=== PATIENT | female | born 1945 | race Caucasian/White ===

== ENCOUNTER 2017-08-04 11:13 | Observation (INO) ==
[2017-08-04 12:02] LABS: Basophils % 0.4 %; Eosinophils # 0.1 K/mcL (0.0-0.6); Eosinophils % 0.9 %; Hematocrit 35.5 % (35.3-44.9); Hemoglobin 11.8 g/dL (11.5-15.4); Immature Granulocytes % 0.4 % (0-4); Lymphocytes # 0.7 K/mcL (0.6-4.6); Lymphocytes % 7.4 %; Mean Corpuscular HGB Conc 33.2 g/dL (31.6-35.5); Mean Corpuscular Hemoglobin 29.7 pg (28.0-33.3); Mean Corpuscular Volume 89.4 fL (83.0-100.0); Mean Platelet Volume 8.8 fL (9.4-12.4); Monocytes # 0.8 K/mcL (0.0-1.3); Monocytes % 8.6 %; Neutrophils # 7.6 K/mcL (1.6-8.9); Platelet Count 250 K/mcL (140-400); Red Blood Count 3.97 M/mcL (3.82-4.97); Red Cell Distribution Width 13.3 % (11.5-14.5); Segmented Neutrophils % 82.3 %
[2017-08-04 12:18] LABS: Prothrombin Time 10.2 Seconds (9.4-12.1)
[2017-08-04 12:29] LABS: Troponin I < 0.03 ng/mL (< 0.04)
[2017-08-04 12:50] LABS: Alanine Aminotransferase 10 Units/L (7-52); Albumin 3.7 g/dL (3.5-5.7); Albumin/Globulin Ratio 1.5 (1.1-2.2); Alkaline Phosphatase 80 Units/L (34-104); Aspartate Amino Transferase 11 Units/L (13-39); BUN/Creatinine Ratio 10 (6-26); Bilirubin,Total 0.5 mg/dL (0.3-1.0); Blood Urea Nitrogen 12 mg/dL (8-23); Calcium 9.2 mg/dL (8.6-10.3); Carbon Dioxide 23 mEq/L (23-29); Chloride 105 mEq/L (98-107); Globulin 2.5 g/dL (2.4-3.5); Glucose 175 mg/dL (70-105); Osmolality,Calculated 290 (280-300); Potassium 4.1 mEq/L (3.5-5.1); Sodium 138 mEq/L (136-145); Total Protein 6.2 g/dL (6.4-8.9); eGFR For African Americans 56 (> 60); eGFR For Non-African Americans 46 (> 60)
[2017-08-04] MEDS ORDERED: Ondansetron 4 MG/2 ML VIAL IVP ONE (13:23)
[2017-08-04 14:01] LABS: Bilirubin,Urine Negative (Negative); Blood,Urine Negative (Negative); Clarity,Urine Clear (Clear); Color,Urine Yellow (Yellow); Glucose,Urine (UA) Normal (Normal); Ketones,Urine Negative (Negative); Leukocyte Esterase,Urine Small (Negative); Nitrite,Urine Negative (Negative); PH,Urine 7.5 pH Units (5.0-8.0); Protein,Urine 30 mg/dL (Neg-Trace); Specific Gravity,Urine 1.017 (1.010-1.025); Urobilinogen,Urine Normal (Normal)
[2017-08-04 14:03] LABS: Bacteria,Urine None Seen per hpf (None-Few); Hyaline Casts,Urine None Seen per lpf (None-Few); RBC,Urine 0-3 per hpf (0-3); Squamous Epithelial Cell,Urine Many per lpf (None-Few); WBC,Urine 0-3 per hpf (0-3)
[2017-08-04] MEDS ORDERED: Metoclopramide 10 MG/2 ML VIAL IVP ONE (15:10)
--- NOTE | 2017-08-04 15:14 | Emergency Department Note ---
Disposition Clinical Impression: Syncope Qualifiers: Qualified Code(s): R55 - Disposition: Admitted As Inpatient Condition: Good General Adult HPI - General Chief complaint: ED Syncope Stated complaint: passing out Time Seen by Provider: 08/04/17 11:22 Source: patient, family Limitations: no limitations Nursing Notes Reviewed: Yes Vital Signs Reviewed: Yes - History of Present Illness HPI Narrative: 72-year-old female presents emergency Department with concerns of headache, neck pain, fever, chills, syncopal event. Patient states she syncopized after getting out of bed, she fell back in the bed and was unconscious for an unknown period of time. Patient denies recent medication changes. No other sick contacts. This never happened to her in the past. Patient denies recent trauma. There is no chest pain, palpitations. Patient does feel lightheaded with movement of her head. Pain Scale: 10 - Related Data Home Medications Medication Instructions Recorded Confirmed Albuterol Sulfate [Albuterol 2 puff IH Q4H PRN 08/04/17 08/04/17 Inhaler] Carvedilol [Coreg] 6.25 mg PO BID 08/04/17 08/04/17 Clopidogrel [Plavix] 75 mg PO DAILY 08/04/17 08/04/17 FLUoxetine HCl [PROzac] 20 mg PO DAILY 08/04/17 08/04/17 Furosemide [Lasix] 40 mg PO DAILY 08/04/17 08/04/17 Insulin Glargine,Hum.rec.anlog 26 unit SQ HS 08/04/17 08/04/17 [Basaglar Kwikpen U-100] Levothyroxine Sodium [Levo-T] [place] [address]/04/17 08/04/17 Lisinopril [Zestril] 20 mg PO DAILY 08/04/17 08/04/17 Meclizine HCl [Verticalm] 25 mg PO DAILY PRN 08/04/17 08/04/17 Ranitidine HCl [Zantac] 300 mg PO BID 08/04/17 08/04/17 Saxagliptin HCl [Onglyza] 5 mg PO DAILY 08/04/17 08/04/17 Simvastatin [Zocor] 40 mg PO HS 08/04/17 08/04/17 Allergies Allergy/AdvReac Type Severity Reaction Status Date / Time azithromycin [From Zithromax] Allergy See Verified 08/04/17 17:01 Comments codeine Allergy See Verified 08/04/17 17:01 Comments Erythromycin Base Allergy See Verified 08/04/17 17:01 Comments iodine Allergy See Verified 08/04/17 17:01 Comments meperidine [From Demerol] Allergy See Verified 08/04/17 17:01 Comments adhesive tape AdvReac See Verified 08/04/17 17:01 Comments All systems ED: reviewed and negative except as stated. Review of Systems: As Per HPI Past Medical History - Past Medical History Attestation: Yes The following information was validated with the patient. 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 Bowel sounds present Neuro: A&O to person, place, time and situation. No focal deficits noted on exam. No nystagmus noted on exam. Psychiatric: cooperative and appropriate mood and affect. - General Limitations: no limitations General appearance: alert, in no apparent distress Course Vital Signs Temperature 100.0 F H 08/04/17 11:15 Pulse Rate 72 08/04/17 11:15 Respiratory Rate 18 08/04/17 11:15 Blood Pressure 139/87 08/04/17 11:15 O2 Sat by Pulse Oximetry 96 08/04/17 11:15 Temperature 97.9 F 08/04/17 19:09 Pulse Rate 70 08/04/17 19:09 Respiratory Rate 17 08/04/17 19:09 Blood Pressure 101/46 08/04/17 19:09 O2 Sat by Pulse Oximetry 95 08/04/17 19:09 Oxygen Delivery Oxygen Delivery Room Air Medical Decision Making - Medical Records Medical records reviewed: Yes I reviewed the patient's medical records. - Lab Data Lab results reviewed: Yes I reviewed the patient's lab results. Result diagrams: 08/04/17 11:51 08/04/17 11:51 Lab Results 08/04/17 08/04/17 08/04/17 Range/Units 11:51 11:51 11:51 WBC 9.2 (4.3-11.1) K/mcL RBC 3.97 (3.82-4.97) M/mcL Hgb 11.8 (11.5-15.4) g/dL Hct 35.5 (35.3-44.9) % MCV 89.4 (83.0-100.0) fL MCH 29.7 (28.0-33.3) pg MCHC 33.2 (31.6-35.5) g/dL RDW 13.3 (11.5-14.5) % Plt Count 250 (140-400) K/mcL MPV 8.8 L (9.4-12.4) fL Immature Gran % 0.4 (0-4) % Seg Neutrophils % 82.3 % Lymphocytes % 7.4 % Monocytes % 8.6 % Eosinophils % 0.9 % Basophils % 0.4 % Neutrophils # 7.6 (1.6-8.9) K/mcL Lymphocytes # 0.7 (0.6-4.6) K/mcL Monocytes # 0.8 (0.0-1.3) K/mcL Eosinophils # 0.1 (0.0-0.6) K/mcL Basophils # 0.0 (0.0-0.2) K/mcL PT 10.2 (9.4-12.1) Seconds INR 1.0 APTT 30.0 (26.0-36.0) Seconds Sodium 138 (136-145) mEq/L Potassium 4.1 (3.5-5.1) mEq/L Chloride 105 (98-107) mEq/L Carbon Dioxide 23 (23-29) mEq/L BUN 12 (8-23) mg/dL Creatinine 1.15 (0.60-1.20) mg/dL Est GFR ( Amer) 56 L (> 60) Est GFR (Non-Af Amer) 46 L (> 60) BUN/Creatinine Ratio 10 (6-26) Glucose 175 H (70-105) mg/dL Calculated Osmolality 290 (280-300) Calcium 9.2 (8.6-10.3) mg/dL Total Bilirubin 0.5 (0.3-1.0) mg/dL AST 11 L (13-39) Units/L ALT 10 (7-52) Units/L Alkaline Phosphatase 80 (34-104) Units/L Troponin I < 0.03 (< 0.04) ng/mL Serum Total Protein 6.2 L (6.4-8.9) g/dL Albumin 3.7 (3.5-5.7) g/dL Globulin 2.5 (2.4-3.5) g/dL Albumin/Globulin Ratio 1.5 (1.1-2.2) Urine Color (Yellow) Urine Clarity (Clear) Urine pH (5.0-8.0) pH Units Ur Specific [place] (1.010-1.025) Urine Protein (Neg-Trace) mg/dL Urine Glucose (UA) (Normal) mg/dL Urine Ketones (Negative) mg/dL Urine Blood (Negative) Urine Nitrite (Negative) Urine Bilirubin (Negative) Urine Urobilinogen (Normal) mg/dL Ur Leukocyte Esterase (Negative) Urine Microscopic RBC (0-3) per hpf Urine Microscopic WBC (0-3) per hpf Ur Squamous Epith Cells (None-Few) per lpf Urine Bacteria (None-Few) per hpf Hyaline Casts (None-Few) per lpf CSF Volume mL CSF Appearance (Clear) CSF Color (Colorless) CSF RBC (0.000 - 0.002) M/mcL CSF Tot Nucleated Cells (0-5) TNC/mcL CSF Glucose (40-70) mg/dL CSF Xanth Comm (Not Observe) CSF Total Protein (15-45) mg/dL 18 08/04/17 Range/Units 13:30 15:50 WBC (4.3-11.1) K/mcL RBC (3.82-4.97) M/mcL Hgb (11.5-15.4) g/dL Hct (35.3-44.9) % MCV (83.0-100.0) fL MCH (28.0-33.3) pg MCHC (31.6-35.5) g/dL RDW (11.5-14.5) % Plt Count (140-400) K/mcL MPV (9.4-12.4) fL Immature Gran % (0-4) % Seg Neutrophils % % Lymphocytes % % Monocytes % % Eosinophils % % Basophils % % Neutrophils # (1.6-8.9) K/mcL Lymphocytes # (0.6-4.6) K/mcL Monocytes # (0.0-1.3) K/mcL Eosinophils # (0.0-0.6) K/mcL Basophils # (0.0-0.2) K/mcL PT (9.4-12.1) Seconds INR APTT (26.0-36.0) Seconds Sodium (136-145) mEq/L Potassium (3.5-5.1) mEq/L Chloride (98-107) mEq/L Carbon Dioxide (23-29) mEq/L BUN (8-23) mg/dL Creatinine (0.60-1.20) mg/dL Est GFR ( Amer) (> 60) Est GFR (Non-Af Amer) (> 60) BUN/Creatinine Ratio (6-26) Glucose (70-105) mg/dL Calculated Osmolality (280-300) Calcium (8.6-10.3) mg/dL Total Bilirubin (0.3-1.0) mg/dL AST (13-39) Units/L ALT (7-52) Units/L Alkaline Phosphatase (34-104) Units/L Troponin I (< 0.04) ng/mL Serum Total Protein (6.4-8.9) g/dL Albumin (3.5-5.7) g/dL Globulin (2.4-3.5) g/dL Albumin/Globulin Ratio (1.1-2.2) Urine Color Yellow (Yellow) Urine Clarity Clear (Clear) Urine pH 7.5 (5.0-8.0) pH Units Ur Specific [place] 1.017 (1.010-1.025) Urine Protein 30 H (Neg-Trace) mg/dL Urine Glucose (UA) Normal (Normal) mg/dL Urine Ketones Negative (Negative) mg/dL Urine Blood Negative (Negative) Urine Nitrite Negative (Negative) Urine Bilirubin Negative (Negative) Urine Urobilinogen Normal (Normal) mg/dL Ur Leukocyte Esterase Small H (Negative) Urine Microscopic RBC 0-3 (0-3) per hpf Urine Microscopic WBC 0-3 (0-3) per hpf Ur Squamous Epith Cells Many H (None-Few) per lpf Urine Bacteria None Seen (None-Few) per hpf Hyaline Casts None Seen (None-Few) per lpf CSF Volume 4.0 mL CSF Appearance Clear (Clear) CSF Color Colorless (Colorless) CSF RBC < 0.002 (0.000 - 0.002) M/mcL CSF Tot Nucleated Cells < 3 (0-5) TNC/mcL CSF Glucose 95 H (40-70) mg/dL CSF Xanth Comm Not Observed (Not Observe) CSF Total Protein 40 (15-45) mg/dL - Radiology Data Radiology results reviewed: Yes I reviewed the patient's radiology results. - EKG Data EKG #1 EKG attestation: Yes I reviewed and interpreted this EKG. EKG results narrative: ECG - interpreted by ED physician. Rate 73, normal sinus rhythm, no STEMI, ID, QT intervals, and QRS within normal limits
[2017-08-04 16:07] LABS: Red Blood Cell,CSF < 0.002 M/mcL
[2017-08-04 16:08] LABS: Appearance,CSF Clear (Clear)
[2017-08-04 16:44] LABS: Glucose,CSF 95 mg/dL (40-70); Total Protein,CSF 40 mg/dL (15-45)
[2017-08-04] MEDS ORDERED: Naloxone 0.4 MG/ML INJ IVP PRN (17:13)
[2017-08-04] MEDS ORDERED: 0.9 % Sodium Chloride 1,000 ML IVC SCH (17:15)
--- NOTE | 2017-08-04 17:23 | Internal Med History&Physical ---
Date of Encounter: 08/04/17 Time of Encounter: 17:25 Internal Medicine - H&P: HPI Chief complaint: Syncope Admitted From: Home Plans for Post Hospital Care: Home History of present illness: Ms. Porter is a 72 year old female who presented to the emergency department with couple episodes of syncope. Patient stated she felt dizzy this morning and then she lost consciousness for a short period of time when she was in bed. Happened again later in the day. Patient denied any shortness of breath denied any chest pain associated with the episode. It never happened in the past. She denied any palpitation. Patient stated that her bed with her taking her from her neck to her tailbone. Patient had low-grade temperature 100. LP was done by the emergency department physician performed negative. On my interviewing the patient she was feeling better. Meningeal signs were negative. She felt lightheaded and some headache earlier today but she is doing better. Patient stated that she did not take any of her medications today. Past Med Surg Social Fam HX - Past Medical History Medical history: coronary artery disease, diabetes, GERD, hypertension, myocardial infarction, other Additional medical history: vertigo Psychiatric history: anxiety, depression - Social History Smoking Status: Never smoker Smokeless Tobacco Status: No Alcohol use: none Drug use: none - Additional Family History Additional family history: Family history positive for coronary artery disease and diabetes Internal Medicine - H&P: Meds Albuterol Sulfate [Albuterol Inhaler] 2 puff IH Q4H PRN 08/04/17 [History] Carvedilol [Coreg] 6.25 mg PO BID 08/04/17 [History] Clopidogrel [Plavix] 75 mg PO DAILY 08/04/17 [History] FLUoxetine HCl [PROzac] 20 mg PO DAILY 08/04/17 [History] Furosemide [Lasix] 40 mg PO DAILY 08/04/17 [History] Insulin Glargine,Hum.rec.anlog [Basaglar Ifeomapen U-100] 26 unit SQ HS 08/04/17 [ History] Levothyroxine Sodium [Levo-T] 112 mcg PO 0630 08/04/17 [History] Lisinopril [Zestril] 20 mg PO DAILY 08/04/17 [History] Meclizine HCl [Verticalm] 25 mg PO DAILY PRN 08/04/17 [History] Ranitidine HCl [Zantac] 300 mg PO BID 08/04/17 [History] Saxagliptin HCl [Onglyza] 5 mg PO DAILY 08/04/17 [History] Simvastatin [Zocor] 40 mg PO HS 08/04/17 [History] 3 Allergy/AdvReac Type Severity Reaction Status Date / Time azithromycin [From Zithromax] Allergy See Verified 08/04/17 17:01 Comments codeine Allergy See Verified 08/04/17 17:01 Comments Erythromycin Base Allergy See Verified 08/04/17 17:01 Comments iodine Allergy See Verified 08/04/17 17:01 Comments meperidine [From Demerol] Allergy See Verified 08/04/17 17:01 Comments adhesive tape AdvReac See Verified 08/04/17 17:01 Comments All Systems PM: A 10-system review of systems was performed and is negative for pertinent findings except as documented above in the HPI. Review of systems: Comprehensive 10 point review of system was done and it was negative other than what was mentioned above - Constitutional Vitals: Temp Pulse Resp BP Pulse Ox 98.0 F 64 16 107/62 94 08/04/17 17:18 08/04/17 17:18 08/04/17 17:18 08/04/17 17:18 08/04/17 17:18 General appearance: Present: A&O X 3 - Head Head exam: Present: atraumatic, normocephalic - Eye Eye exam: Present: PERRL, conjuntiva pink, sclera anicteric Pupils: Present: PERRL - Neck Neck exam general surgery: Present: supple, trachea midline. Absent: lymphadenopathy Additional comments: Brudzinski and Kernig signs are both negative - Respiratory Respiratory exam: Present: CTAB. Absent: accessory muscle use, rales, rhonchi, wheezes - Cardiovascular Cardiovascular exam: Present: RRR, +S1, +S2. Absent: diastolic murmur, gallop, rubs, systolic murmur - GI/Abdominal GI/Abdominal exam: Present: normal bowel sounds, soft, no peritoneal signs. Absent: distended, tenderness - Neurological Exam Neurological exam: Present: CN II-XII intact, oriented X3, no focal deficits. Absent: pronater drift, facial droop, speech deficit - Skin Skin exam: Present: dry, intact Internal Med - H&P Results - Labs CBC & Chem 7: 08/04/17 11:51 08/04/17 11:51 - Assessment and plan (1) Syncope Current Visit: Yes Status: Acute Assessment and plan: Gentle IV hydration with normal saline We will check an echocardiogram for further evaluation of the heart structure and function Check carotid duplex Telemetry monitoring to rule out any arrhythmias Patient may need event monitor as an outpatient after discharge. She has a history of coronary artery disease and had 8 stents placed Check orthostatic vital signs Check serial troponin Physical therapy and occupational therapy Qualifiers: Qualified Code(s): R55 - Syncope and collapse (2) Temperature elevated Current Visit: Yes Status: Acute Assessment and plan: Low-grade fever was temperature of 100 No clear signs of infection Lumbar puncture done by the emergency room and results were negative. Patient does not have any signs of meningeal irritation Will get blood cultures Follow clinically (3) Coronary artery disease Current Visit: Yes Status: Acute Assessment and plan: Patient has a history of coronary artery disease with 8 stents placed Continue current cardiac medications as ordered Serial troponin ordered Qualifiers: Qualified Code(s): I25.10 - Atherosclerotic heart disease of [place] coronary artery without angina pectoris (4) Type 2 diabetes mellitus Current Visit: Yes Status: Acute Assessment and plan: Continue antidiabetic medications as ordered Add insulin sliding scale. Monitor Accu-Checks Qualifiers: Qualified Code(s): E11.9 - Type 2 diabetes mellitus without complications (5) History of gastroesophageal reflux (GERD) Current Visit: Yes Status: Acute Assessment and plan: Patient is taking ranitidine at home with no improvement Was switched to PPI (6) DVT prophylaxis Current Visit: Yes Status: Acute Assessment and plan: With Lovenox as per protocol - Time Spent With Patient Total time spent is greater than 50% in coordination of care (as documented) at patient's floor/unit and/or counseling patient:
[2017-08-04] MEDS: (Saxagliptin Hcl [Onglyza] 5 MG) PO SCH (17:52)
[2017-08-04] MEDS: Lisinopril 20 MG TABLET PO SCH (17:53)
[2017-08-04] MEDS: FLUoxetine 20 MG CAPSULE PO SCH (18:22)
[2017-08-04] MEDS: Furosemide 40 MG TABLET PO SCH (18:22)
[2017-08-04] MEDS: 0.9 % Sodium Chloride 1,000 ML IVC SCH (18:26)
[2017-08-04] MEDS: Acetaminophen 325 MG TABLET PO PRN (20:13)
[2017-08-04] MEDS ORDERED: Insulin DETEMIR 100 UNIT/ML X5UNITS SQ SCH (21:00)
[2017-08-05 03:18] LABS: Basophils % 0.3 %; Eosinophils # 0.1 K/mcL (0.0-0.6); Eosinophils % 1.4 %; Hematocrit 32.8 % (35.3-44.9); Hemoglobin 10.4 g/dL (11.5-15.4); Immature Granulocytes % 0.3 % (0-4); Lymphocytes # 1.7 K/mcL (0.6-4.6); Lymphocytes % 17.6 %; Mean Corpuscular HGB Conc 31.7 g/dL (31.6-35.5); Mean Corpuscular Hemoglobin 28.3 pg (28.0-33.3); Mean Corpuscular Volume 89.4 fL (83.0-100.0); Mean Platelet Volume 9.3 fL (9.4-12.4); Monocytes # 0.9 K/mcL (0.0-1.3); Monocytes % 9.3 %; Neutrophils # 6.7 K/mcL (1.6-8.9); Platelet Count 275 K/mcL (140-400); Red Blood Count 3.67 M/mcL (3.82-4.97); Red Cell Distribution Width 13.8 % (11.5-14.5); Segmented Neutrophils % 71.1 %
[2017-08-05 03:27] LABS: Calcium 8.6 mg/dL (8.6-10.3); Chol/HDL Ratio 3.5 (0-4.9); Magnesium 1.9 mg/dL (1.6-2.6); Potassium 3.7 mEq/L (3.5-5.1)
[2017-08-05 03:57] LABS: Vitamin B12 251 pg/mL (250-1100)
[2017-08-05 03:58] LABS: Folate > 22.3 ng/mL (3.0-16.0)
[2017-08-05] MEDS ORDERED: *HR* Enoxaparin 40 MG/0.4 ML SYRINGE SQ SCH (06:00)
--- NOTE | 2017-08-05 07:19 | Electrocardiograph Report ---
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
[2017-08-05] MEDS: 0.9 % Sodium Chloride 1,000 ML IVC SCH (07:32)
[2017-08-05] MEDS ORDERED: Pantoprazole 40 MG VIAL IVP SCH (09:00)
[2017-08-05] MEDS: FLUoxetine 20 MG CAPSULE PO SCH (09:12)
[2017-08-05] MEDS: Acetaminophen 325 MG TABLET PO PRN (09:13)
[2017-08-05] MEDS: Lisinopril 20 MG TABLET PO SCH ×2 (09:23→09:25)
[2017-08-05] MEDS: (Saxagliptin Hcl [Onglyza] 5 MG) PO SCH (09:25)
[2017-08-05] MEDS: Furosemide 40 MG TABLET PO SCH (09:25)
[2017-08-05] MEDS ORDERED: *HR* Dextrose 50 % in Water (Syg) 50 ML SYRINGE IVP PRN (09:32)
[2017-08-05] MEDS ORDERED: Dextrose Gel 15 GM/37.5 ML TUBE PO PRN ×2 (09:32)
[2017-08-05] MEDS ORDERED: D5% in Water 1,000 ML IVC PRN (09:32)
[2017-08-05] MEDS ORDERED: Insulin LISPRO 300 UNITS/3 ML VIAL SQ SCH ×2 (11:30→21:00)
--- NOTE | 2017-08-05 13:08 | Discharge Summary ---
- NOTES TO OUTPATIENT PROVIDER Notes to Outpatient Provider: Pt was admitted for dizziness and syncopal episodes x 2 prior to arrival. Due to fever and back pain in the ER, LP was performed and was negative. Echocardiogram showed LVEF is 55%, mild LV DD, mild TR. Patient also had bilateral carotid duplex, right sided nonstenotic plaque in left side appeared to have 40-59% stenosis. Patient appears to have baseline stable renal function without JAMES, and urine was negative for infection. Orthostatic vital signs were negative. Chest x-ray and head CT were both unremarkable. Pt states that she has had these episodes in the past, but it has been a few years. Recommend follow up with cardiology for event monitor and further workup. Patient is being sent home with home health. Orders not resulted at time of discharge: Pending orders 08/04/17 17:48 Culture,Blood [BC] Routine 08/06/17 04:00 Basic Metabolic Panel AM 0400 Complete Blood Count [HEME] AM 0400 08/07/17 04:00 Basic Metabolic Panel AM 0400 Complete Blood Count [HEME] AM 0400 08/08/17 04:00 Basic Metabolic Panel AM 0400 Complete Blood Count [HEME] AM 0400 Date of Encounter: 08/05/17 Time of Encounter: 09:15 - Discharge Diagnosis (1) Coronary artery disease Priority: Primary Status: Acute Assessment and Plan: Primary history of coronary artery disease. Patient has 8 coronary artery stents. Continue current medications. Continue telemetry. Qualifiers: Coronary Disease-Associated Artery/Lesion type: [place] artery [place] vs. transplanted heart: [place] heart Associated angina: angina presence unspecified Qualified Code(s): I25.10 - Atherosclerotic heart disease of [place] coronary artery without angina pectoris (2) History of gastroesophageal reflux (GERD) Priority: Secondary Status: Chronic Assessment and Plan: Chronic. Continue home medications. (3) Syncope Priority: Secondary Status: Acute Assessment and Plan: Prior history of same in the past, patient states at that time she was told it was due to her d-dimer, she did not ever have any further workup. Patient denies any dizziness, syncope, near syncope since admission. Orthostatic vital signs are negative, Chest xray negative, carotid duplex showed right side with nonstenotic plaque only, left side appears to have 40-59 % stenosis. Echocardiogram shows LVEF of 55%, mild LV DD, mild TR. PT/OT evaluations are still pending. No events noted on telemetry. Unclear etiology, recommend pt follow up with PCP/cardiology for possible event monitor. Patient is going home with home health. Qualifiers: Syncope type: unspecified Qualified Code(s): R55 - Syncope and collapse (4) Temperature elevated Priority: Secondary Status: Acute Assessment and Plan: Low grade fever on admission. No obvious signs of infection. LP negative in ER. No leukocytosis, no tachycardia, no hypotension. Chest x-ray negative. Urine without obvious signs of infection. Patient has been afebrile for 24 hours. (5) Type 2 diabetes mellitus Priority: Secondary Status: Chronic Assessment and Plan: Continue SSI, diabetic diet, and accuchecks achs. 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 Porter is a 72 year old female with past medical history of CHF, A. fib, hypertension, coronary artery disease. Patient admitted for syncopal episodes. Right carotid with nonstenotic plaque, left carotid with 40-59% stenosis. TTE with 55% ejection fraction, mild LV DD, mild TR. She reports prior history of syncopal episodes in the past, at that time she was told that it was related to her d-dimer. She reports that this was several years ago and she did not follow up. Orthostatic vital signs are negative. Labs and vitals are within normal limits. Patient could benefit from follow-up and event monitor after discharge. Patient is going to go home with home health, nursing and aides. Patient is appropriate for discharge. Discharge discussed with: patient, family - Time Spent with Patient Total time spent providing and/or coordinating discharge services: Less than 30 minutes - Discharge Medications Home Medications: Albuterol Sulfate [Albuterol Inhaler] 2 puff IH Q4H PRN 08/04/17 [History] Carvedilol [Coreg] 6.25 mg PO BID 08/04/17 [History] Clopidogrel [Plavix] 75 mg PO DAILY 08/04/17 [History] FLUoxetine HCl [Prozac] 20 mg PO DAILY 08/04/17 [History] Furosemide [Lasix] 40 mg PO DAILY 08/04/17 [History] Insulin Glargine,Hum.rec.anlog [Basaglar Ifeomapen U-100] 26 unit SQ HS 08/04/17 [ History] Levothyroxine Sodium [Levo-T] 112 mcg PO 0630 08/04/17 [History] Lisinopril [Zestril] 20 mg PO DAILY 08/04/17 [History] Meclizine HCl [Verticalm] 25 mg PO DAILY PRN 08/04/17 [History] Ranitidine HCl [Zantac] 300 mg PO BID 08/04/17 [History] Saxagliptin HCl [Onglyza] 5 mg PO DAILY 08/04/17 [History] Simvastatin [Zocor] 40 mg PO HS 08/04/17 [History] Allergies/Adverse Reactions: 3 Allergy/AdvReac Type Severity Reaction Status Date / Time azithromycin [From Zithromax] Allergy See Verified 08/04/17 17:01 Comments codeine Allergy See Verified 08/04/17 17:01 Comments Erythromycin Base Allergy See Verified 08/04/17 17:01 Comments iodine Allergy See Verified 08/04/17 17:01 Comments meperidine [From Demerol] Allergy See Verified 08/04/17 17:01 Comments adhesive tape AdvReac See Verified 08/04/17 17:01 Comments Date of admission: 08/04/17 16:38 Primary care physician: Benny Hanson DO Discharging clinician: Mine Alvarez Anticipated date of discharge: 08/05/17 - Constitutional Vitals: Temp Pulse Resp BP Pulse Ox 98.7 F 64 15 118/71 95 08/05/17 11:06 08/05/17 11:06 08/05/17 11:06 08/05/17 11:06 08/05/17 11:06 General appearance: Present: cooperative, A&O X 3, pleasant, no acute distress, answers questions appropriately - Head Head exam: Present: atraumatic, normal inspection, normocephalic - Eye Eye exam: Present: normal appearance, conjuntiva pink, sclera anicteric - Neck Neck exam general surgery: Present: normal inspection, supple, trachea midline. Absent: lymphadenopathy, tenderness - Respiratory Respiratory exam: Present: CTAB. Absent: accessory muscle use, rales, respiratory distress, rhonchi, wheezes - Cardiovascular Cardiovascular exam: Present: RRR, +S1, +S2. Absent: diastolic murmur, gallop, rubs, systolic murmur - GI/Abdominal GI/Abdominal exam: Present: normal bowel sounds, soft. Absent: distended, hepatomegaly, tenderness - Extremities Exam Extremities exam: Present: normal capillary refill, normal inspection, warm, radial pulses palpable and symmetrical. Absent: calf tenderness, cyanotic, pedal edema, tenderness - Neurological Exam Neurological exam: Present: alert, oriented X3, no focal deficits. Absent: facial droop, speech deficit - Skin Skin exam: Present: dry, intact, normal color, warm. Absent: rash - Patient Status Disposition: Home, Self-Care Condition: Good Functional capacity at discharge: independent ambulation Overall status at discharge: patient is progressing back to baseline - Discharge Instructions Follow Up With: Benny Hanson DO [Primary Care Provider] - 08/15/17 9:30 am (Follow has been requested. Office will contact patient with time and date of appointment.) Additional Instructions: Please follow up with PCP in the next 5-7 days Return to the ER as needed for any other problems or concerns, or if your symptoms return or worsen. Take your medications as directed Return to your normal diet and activities as tolerated. - Diet and Activity Activity: increase activity as tolerated Diet: advance to your usual diet
[2017-08-05 15:29] VITALS: BP 129/64
--- NOTE | 2017-08-05 17:07 | Physician Discharge Referral ---
Home Health/Hosp Referral Info Transfer to: Home Health Provider in Charge Post Discharge: PCP - Diagnosis (1) Coronary artery disease Priority: Secondary Status: Chronic (2) History of gastroesophageal reflux (GERD) Priority: Secondary Status: Chronic (3) Syncope Priority: Primary Status: Acute (4) Temperature elevated Priority: Secondary Status: Resolved (5) Type 2 diabetes mellitus Priority: Secondary Status: Chronic (6) DVT prophylaxis Priority: Secondary Status: Acute - Respiratory Orders Smoking Cessation: Smoking cessation has been advised. For more information, call the [place] Tobacco Quit Line at 0-749-JISC-NOW. - Diet/Nutrition Diet/Nutrition Orders: Regular - Activity Activity Orders: Up ad abhinav - Services Needed Following services are medically necessary services: Nursing, Home Health Aide, Physical Therapy, Occupational Therapy - Transfer Medications Home Medications: Albuterol Sulfate [Albuterol Inhaler] 2 puff IH Q4H PRN 08/04/17 [History] Carvedilol [Coreg] 6.25 mg PO BID 08/04/17 [History] Clopidogrel [Plavix] 75 mg PO DAILY 08/04/17 [History] FLUoxetine HCl [Prozac] 20 mg PO DAILY 08/04/17 [History] Furosemide [Lasix] 40 mg PO DAILY 08/04/17 [History] Insulin Glargine,Hum.rec.anlog [Basaglar Kwikpen U-100] 26 unit SQ HS 08/04/17 [ History] Levothyroxine Sodium [Levo-T] 112 mcg PO 0630 08/04/17 [History] Lisinopril [Zestril] 20 mg PO DAILY 08/04/17 [History] Meclizine HCl [Verticalm] 25 mg PO DAILY PRN 08/04/17 [History] Ranitidine HCl [Zantac] 300 mg PO BID 08/04/17 [History] Saxagliptin HCl [Onglyza] 5 mg PO DAILY 08/04/17 [History] Simvastatin [Zocor] 40 mg PO HS 08/04/17 [History] Allergies/Adverse Reactions: 3 Allergy/AdvReac Type Severity Reaction Status Date / Time azithromycin [From Zithromax] Allergy See Verified 08/04/17 17:01 Comments codeine Allergy See Verified 08/04/17 17:01 Comments Erythromycin Base Allergy See Verified 08/04/17 17:01 Comments iodine Allergy See Verified 08/04/17 17:01 Comments meperidine [From Demerol] Allergy See Verified 08/04/17 17:01 Comments adhesive tape AdvReac See Verified 08/04/17 17:01 Comments Certification: Further, I certify that my clinical findings support that this patient is homebound (i.e. absences from home require considerable and taxing effort and are for medical reasons or yazidi services or infrequently or short duration when for other reasons) because: Homebound Reason: Leaving home requires considerable and taxing effort due to condition Attestation: My signature below is to certify that this patient is under my care and that I, or nurse practitioner, or a physician's assistant dean of students working with me, has a face-to -face encounter with this patient.
== END 2017-08-05 18:20 | disposition home or self-care (01) ==
LOC: EMEROO 11:13 → 3BNU 11:13
PROVIDERS: ADMIT Internal Medicine; ATTEND Internal Medicine

== ENCOUNTER 2019-03-25 07:31 | Observation (INO) ==
[2019-03-25] MEDS ORDERED: Aspirin 81 MG TAB.CHEW PO ONE (07:52)
[2019-03-25 08:15] LABS: Basophils # 0.1 K/mcL (0.0-0.2); Basophils % 0.9 %; Eosinophils # 0.2 K/mcL (0.0-0.6); Eosinophils % 2.5 %; Hematocrit 35.4 % (35.3-44.9); Hemoglobin 11.2 g/dL (11.5-15.4); Immature Granulocytes % 0.2 % (0-4); Lymphocytes # 1.8 K/mcL (0.6-4.6); Lymphocytes % 22.1 %; Mean Corpuscular HGB Conc 31.6 g/dL (31.6-35.5); Mean Corpuscular Volume 91.7 fL (83.0-100.0); Mean Platelet Volume 9.1 fL (9.4-12.4); Monocytes # 0.9 K/mcL (0.0-1.3); Monocytes % 10.5 %; Neutrophils # 5.2 K/mcL (1.6-8.9); Platelet Count 270 K/mcL (140-400); Red Blood Count 3.86 M/mcL (3.82-4.97); Red Cell Distribution Width 13.2 % (11.5-14.5); Segmented Neutrophils % 63.8 %; White Blood Count 8.1 K/mcL (4.3-11.1)
[2019-03-25 08:19] LABS: INR 0.9; Prothrombin Time 10.4 Seconds (9.4-12.1)
[2019-03-25 08:22] LABS: Activated Partial Thrombo Time 33.9 Seconds (26.0-36.0)
[2019-03-25 08:41] LABS: BUN/Creatinine Ratio 20 (6-26); Blood Urea Nitrogen 24 mg/dL (8-23); Calcium 9.4 mg/dL (8.6-10.3); Carbon Dioxide 26 mEq/L (23-29); Chloride 104 mEq/L (98-107); Glucose 77 mg/dL (70-105); Osmolality,Calculated 289 (280-300); Sodium 138 mEq/L (136-145); Troponin I < 0.03 ng/mL (< 0.04); eGFR For African Americans 53 (> 60); eGFR For Non-African Americans 44 (> 60)
[2019-03-25 08:47] LABS: Bilirubin,Urine Negative (Negative); Blood,Urine Negative (Negative); Clarity,Urine Clear (Clear); Color,Urine Yellow (Yellow); Glucose,Urine (UA) Normal (Normal); Ketones,Urine Negative (Negative); Leukocyte Esterase,Urine Moderate (Negative); Nitrite,Urine Negative (Negative); Protein,Urine Negative (Neg-Trace); Specific Gravity,Urine 1.019 (1.010-1.025); Urobilinogen,Urine Normal (Normal)
[2019-03-25 08:48] LABS: Bacteria,Urine None Seen per hpf (None-Few); Hyaline Casts,Urine None Seen per lpf (None-Few); RBC,Urine 0-3 per hpf (0-3); Squamous Epithelial Cell,Urine Many per lpf (None-Few)
[2019-03-25] MEDS ORDERED: Naloxone 0.4 MG/ML INJ IVP PRN (09:58)
[2019-03-25] MEDS ORDERED: D5% in Water 1,000 ML IVC PRN (10:13)
[2019-03-25] MEDS ORDERED: *HR* Dextrose 50 % in Water (Syg) 50 ML SYRINGE IVP PRN (10:13)
[2019-03-25] MEDS ORDERED: Dextrose Gel 15 GM/37.5 ML TUBE PO PRN ×2 (10:13)
[2019-03-25] MEDS ORDERED: Famotidine 20 MG TABLET PO SCH (10:30)
[2019-03-25] MEDS: Insulin LISPRO 300 UNITS/3 ML VIAL SQ SCH ×2 (12:20→17:51)
[2019-03-25] MEDS: Acetaminophen 325 MG TABLET PO PRN ×2 (12:31→22:14)
[2019-03-25] MEDS: *HR* Heparin 5,000 UNIT/ML VIAL SQ SCH ×2 (12:31→22:04)
[2019-03-25] MEDS: FLUoxetine 20 MG CAPSULE PO SCH ×2 (12:31→22:04)
[2019-03-25] MEDS: Furosemide 40 MG TABLET PO SCH (12:32)
[2019-03-25] MEDS: Lisinopril 20 MG TABLET PO SCH (12:32)
[2019-03-25] MEDS ORDERED: Perflutren Lipid Microsphere 1.3 ML in 0.9 % Sodium Chloride 8.7 ML IVP ONE (14:30)
[2019-03-25] MEDS ORDERED: Insulin LISPRO 300 UNITS/3 ML VIAL SQ SCH (21:00)
[2019-03-25] MEDS: Famotidine 20 MG TABLET PO SCH (22:03)
[2019-03-26 04:28] LABS: Basophils % 0.7 %; Eosinophils # 0.2 K/mcL (0.0-0.6); Eosinophils % 3.5 %; Hematocrit 35.7 % (35.3-44.9); Hemoglobin 11.8 g/dL (11.5-15.4); Immature Granulocytes % 0.2 % (0-4); Lymphocytes # 1.4 K/mcL (0.6-4.6); Lymphocytes % 26.9 %; Mean Corpuscular HGB Conc 33.1 g/dL (31.6-35.5); Mean Corpuscular Hemoglobin 28.6 pg (28.0-33.3); Mean Corpuscular Volume 86.7 fL (83.0-100.0); Mean Platelet Volume 9.1 fL (9.4-12.4); Monocytes # 0.6 K/mcL (0.0-1.3); Monocytes % 11.6 %; Neutrophils # 3.1 K/mcL (1.6-8.9); Platelet Count 280 K/mcL (140-400); Red Blood Count 4.12 M/mcL (3.82-4.97); Red Cell Distribution Width 13.2 % (11.5-14.5); Segmented Neutrophils % 57.1 %; White Blood Count 5.4 K/mcL (4.3-11.1)
[2019-03-26 04:41] LABS: Calcium 9.2 mg/dL (8.6-10.3); Chol/HDL Ratio 4.2 (0-4.9)
[2019-03-26] MEDS: *HR* Heparin 5,000 UNIT/ML VIAL SQ SCH (04:58)
[2019-03-26 07:18] VITALS: BP 152/72
[2019-03-26] MEDS: Insulin LISPRO 300 UNITS/3 ML VIAL SQ SCH (07:58)
[2019-03-26] MEDS: Lisinopril 20 MG TABLET PO SCH ×3 (07:59→09:41)
[2019-03-26] MEDS: Aspirin Enteric Coated 81 MG Tablet PO SCH ×3 (07:59→09:40)
[2019-03-26] MEDS: Furosemide 40 MG TABLET PO SCH (07:59)
[2019-03-26] MEDS: Famotidine 20 MG TABLET PO SCH (07:59)
[2019-03-26] MEDS: FLUoxetine 20 MG CAPSULE PO SCH (07:59)
[2019-03-26] MEDS ORDERED: Ondansetron 4 MG/2 ML VIAL IVP PRN (09:16)
== END 2019-03-26 12:14 | disposition home or self-care (01) ==
LOC: 3BNU 07:31 → EMEROOARM 07:31 → SUATTDRO 09:56 → 3BNU 10:36
PROVIDERS: ADMIT Internal Medicine; ATTEND Internal Medicine

== ENCOUNTER 2019-04-02 14:24 | Observation (INO) ==
[2019-04-02 14:52] LABS: Basophils # 0.1 K/mcL (0.0-0.2); Basophils % 0.9 %; Eosinophils # 0.2 K/mcL (0.0-0.6); Eosinophils % 2.4 %; Hematocrit 37.3 % (35.3-44.9); Hemoglobin 11.7 g/dL (11.5-15.4); Immature Granulocytes % 0.3 % (0-4); Lymphocytes # 1.2 K/mcL (0.6-4.6); Lymphocytes % 17.5 %; Mean Corpuscular HGB Conc 31.4 g/dL (31.6-35.5); Mean Corpuscular Volume 92.6 fL (83.0-100.0); Monocytes # 0.6 K/mcL (0.0-1.3); Monocytes % 9.3 %; Neutrophils # 4.7 K/mcL (1.6-8.9); Platelet Count 277 K/mcL (140-400); Red Blood Count 4.03 M/mcL (3.82-4.97); Red Cell Distribution Width 13.2 % (11.5-14.5); Segmented Neutrophils % 69.6 %; White Blood Count 6.7 K/mcL (4.3-11.1)
[2019-04-02 14:53] LABS: INR 0.9; Prothrombin Time 10.6 Seconds (9.4-12.1)
[2019-04-02] MEDS ORDERED: Aspirin 81 MG TAB.CHEW PO SCH (14:54)
[2019-04-02 14:56] LABS: Activated Partial Thrombo Time 33.5 Seconds (26.0-36.0)
[2019-04-02 15:48] LABS: BUN/Creatinine Ratio 16 (6-26); Blood Urea Nitrogen 19 mg/dL (8-23); Calcium 9.2 mg/dL (8.6-10.3); Carbon Dioxide 25 mEq/L (23-29); Chloride 104 mEq/L (98-107); Glucose 93 mg/dL (70-105); Osmolality,Calculated 290 (280-300); Potassium 4.1 mEq/L (3.5-5.1); Sodium 139 mEq/L (136-145); Troponin I < 0.03 ng/mL (< 0.04); eGFR For African Americans 53 (> 60); eGFR For Non-African Americans 43 (> 60)
[2019-04-02] MEDS ORDERED: Ondansetron 4 MG/2 ML VIAL IVP PRN (17:37)
[2019-04-02] MEDS ORDERED: Naloxone 0.4 MG/ML INJ IVP PRN (17:37)
[2019-04-02] MEDS ORDERED: Acetaminophen 325 MG TABLET PO PRN (17:37)
[2019-04-02] MEDS ORDERED: Dextrose Gel 15 GM/37.5 ML TUBE PO PRN ×2 (17:43)
[2019-04-02] MEDS ORDERED: D5% in Water 1,000 ML IVC PRN (17:43)
[2019-04-02] MEDS ORDERED: *HR* Dextrose 50 % in Water (Syg) 50 ML SYRINGE IVP PRN (17:43)
[2019-04-02] MEDS ORDERED: *HR* OxyCODONE Immed Rel 5 MG TABLET PO PRN (18:42)
[2019-04-02] MEDS: Lisinopril 20 MG TABLET PO SCH (19:35)
[2019-04-02] MEDS ORDERED: Insulin DETEMIR 100 UNIT/ML X5UNITS SQ SCH (21:00)
[2019-04-02] MEDS ORDERED: carvediloL 6.25 MG TABLET PO SCH (21:00)
[2019-04-02] MEDS: FLUoxetine 20 MG CAPSULE PO SCH (22:34)
[2019-04-03 05:50] LABS: Basophils % 0.7 %; Eosinophils # 0.2 K/mcL (0.0-0.6); Eosinophils % 3.5 %; Hematocrit 35.5 % (35.3-44.9); Hemoglobin 11.4 g/dL (11.5-15.4); Immature Granulocytes % 0.2 % (0-4); Lymphocytes # 1.7 K/mcL (0.6-4.6); Lymphocytes % 30.4 %; Mean Corpuscular HGB Conc 32.1 g/dL (31.6-35.5); Mean Corpuscular Hemoglobin 28.6 pg (28.0-33.3); Mean Platelet Volume 9.3 fL (9.4-12.4); Monocytes # 0.6 K/mcL (0.0-1.3); Monocytes % 10.4 %; Neutrophils # 3.1 K/mcL (1.6-8.9); Platelet Count 277 K/mcL (140-400); Red Blood Count 3.99 M/mcL (3.82-4.97); Red Cell Distribution Width 13.2 % (11.5-14.5); Segmented Neutrophils % 54.8 %; White Blood Count 5.7 K/mcL (4.3-11.1)
[2019-04-03 06:17] LABS: Calcium 9.1 mg/dL (8.6-10.3); Potassium 3.8 mEq/L (3.5-5.1)
[2019-04-03] MEDS ORDERED: Regadenoson 0.4 MG/5 ML SYRINGE IVP ONE (06:20)
[2019-04-03] MEDS ORDERED: Furosemide 40 MG TABLET PO SCH (09:00)
[2019-04-03] MEDS ORDERED: Aspirin 81 MG TAB.CHEW PO SCH (09:00)
[2019-04-03] MEDS ORDERED: Lisinopril 20 MG TABLET PO SCH (09:00)
[2019-04-03] MEDS ORDERED: Aspirin Enteric Coated 81 MG Tablet PO SCH (09:00)
[2019-04-03] MEDS: Insulin LISPRO 300 UNITS/3 ML VIAL SQ SCH ×2 (09:32→11:11)
[2019-04-03] MEDS: FLUoxetine 20 MG CAPSULE PO SCH (10:02)
[2019-04-03] MEDS: Lisinopril 20 MG TABLET PO SCH (10:02)
[2019-04-03] MEDS ORDERED: Isosorbide MONOnitrate (24 HR) 60 MG TAB.ER.24H PO SCH (11:30)
[2019-04-03 15:14] VITALS: BP 120/68
[2019-04-03] MEDS ORDERED: Famotidine 20 MG TABLET PO SCH (21:00)
== END 2019-04-03 16:38 | disposition home or self-care (01) ==
LOC: 3BNU 14:24 → EMEROOARM 14:24 → 3BNU 18:40
PROVIDERS: ADMIT Pharmacist; ATTEND Pharmacist

== ENCOUNTER 2020-01-14 09:50 | Observation (INO) ==
[2020-01-14 10:59] LABS: Basophils % 0.2 %; Eosinophils # 0.1 K/mcL (0.0-0.6); Hematocrit 37.7 % (35.3-44.9); Hemoglobin 11.9 g/dL (11.5-15.4); Immature Granulocytes % 0.4 % (0-4); Lymphocytes # 0.7 K/mcL (0.6-4.6); Lymphocytes % 14.3 %; Mean Corpuscular HGB Conc 31.6 g/dL (31.6-35.5); Mean Corpuscular Hemoglobin 28.4 pg (28.0-33.3); Mean Platelet Volume 9.5 fL (9.4-12.4); Monocytes # 0.5 K/mcL (0.0-1.3); Monocytes % 9.9 %; Neutrophils # 3.8 K/mcL (1.6-8.9); Platelet Count 221 K/mcL (140-400); Red Blood Count 4.19 M/mcL (3.82-4.97); Red Cell Distribution Width 14.1 % (11.5-14.5); Segmented Neutrophils % 74.2 %; White Blood Count 5.2 K/mcL (4.3-11.1)
[2020-01-14 11:21] LABS: Alanine Aminotransferase 11 Units/L (7-52); Albumin/Globulin Ratio 1.4 (1.1-2.2); Alkaline Phosphatase 58 Units/L (34-104); Aspartate Amino Transferase 16 Units/L (13-39); BUN/Creatinine Ratio 13 (6-26); Bilirubin,Direct 0.1 mg/dL (0.0-0.2); Bilirubin,Indirect 0.3 mg/dL (0.0-1.0); Bilirubin,Total 0.4 mg/dL (0.3-1.0); Blood Urea Nitrogen 14 mg/dL (8-23); Calcium 8.8 mg/dL (8.6-10.3); Carbon Dioxide 25 mEq/L (23-29); Chloride 102 mEq/L (98-107); Globulin 2.8 g/dL (2.4-3.5); Glucose 145 mg/dL (70-105); Lipase 36 Units/L (11-82); Osmolality,Calculated 287 (280-300); Potassium 3.8 mEq/L (3.5-5.1); Sodium 137 mEq/L (136-145); Total Protein 6.8 g/dL (6.4-8.9); Troponin I < 0.03 ng/mL (< 0.04); eGFR For African Americans > 60 (> 60); eGFR For Non-African Americans 52 (> 60)
[2020-01-14 12:50] LABS: Bilirubin,Urine Negative (Negative); Blood,Urine Negative (Negative); Clarity,Urine Clear (Clear); Color,Urine Light-Yellow (Yellow); Glucose,Urine (UA) Normal (Normal); Ketones,Urine Negative (Negative); Leukocyte Esterase,Urine Negative (Negative); Mucus,Urine Few per lpf (None-Few); Nitrite,Urine Negative (Negative); Protein,Urine 100 mg/dL (Neg-Trace); RBC,Urine 0-3 per hpf (0-3); Specific Gravity,Urine 1.014 (1.010-1.025); Squamous Epithelial Cell,Urine Few per hpf (None-Few); Urobilinogen,Urine Normal (Normal); WBC,Urine 0-3 per hpf (0-3)
[2020-01-14] MEDS ORDERED: Acetaminophen 325 MG TABLET PO PRN (13:09)
[2020-01-14] MEDS ORDERED: Ondansetron 4 MG/2 ML VIAL IVP PRN (13:09)
[2020-01-14] MEDS ORDERED: Ringers Solution, Lactated 1,000 ML IVC SCH (13:15)
[2020-01-14 14:19] VITALS: BP 186/83
[2020-01-15] MEDS ORDERED: *HR* Enoxaparin 30 MG/0.3 ML SYRINGE SQ SCH (06:00)
== END 2020-01-14 18:10 | disposition home health service (06) ==
LOC: EMEROOARM 09:50 → CDU 09:50
PROVIDERS: ADMIT Internal Medicine; ATTEND Internal Medicine